=== PATIENT | female | born 1955 | race Caucasian/White ===

== ENCOUNTER → 2017-05-29 | Outpatient (CLI) | payer OTHER ==
[~2017-05-29] MED LIST: CELEXA40 MG; HYDROCHLOROTHIA25 MG PO; MACROBID 100 M100 MG PO; NEXIUM40 MG PO; OXYBUTYNIN CHLOR5 MG PO; RAMIPRIL5 MG PO
--- NOTE | 2017-05-29 14:13 | Diagnostic Imaging Report ---
PROCEDURE:X-RAY ABDOMEN - KUB COMPARISON:Abdomen x-ray 01/08/17. CT abdomen//16/16 INDICATIONS:CALCULUS OF THE KIDNEY FINDINGS: Medical devices: None. Bowel gas pattern: Normal. Organomegaly: None. Calcifications: No calcifications over the renal shadows or along expected course of the ureters. Bones: Levoscoliosis of the lumbar spine is stable with superimposed degenerative changes. No focal osseous lesions. A soft tissue calcification in the right lower quadrant is stable and measures 10 mm. CONCLUSION: No radiographic evidence of renal calculus. Dictated by: Elisha Desai M.D. on 05/29/2017 at 14:21 Electronically approved by: Elisha Desai M.D. on 05/29/2017 at 14:21
== END ==
LOC: RAD 13:36
PROVIDERS: ATTEND Urology
DX: N20.0 Calculus of kidney (principal)
CPT/HCPCS: 74000

== ENCOUNTER → 2017-11-28 | Outpatient (CLI) | payer OTHER ==
--- NOTE | 2017-11-28 17:15 | Diagnostic Imaging Report ---
PROCEDURE:X-RAY ABDOMEN - KUB COMPARISON:CT, CT ABDOMEN/PELVIS WO, 04/25/2016, 21:07. INDICATIONS:follow up calculus of kidney FINDINGS: There is a non-obstructed bowel-gas pattern. No calcifications projected over the renal shadows, expected course of the ureters or bladder. No acute osseous abnormalities. Stable 1.0 cm calcified injection granuloma in the right gluteal region. Stable S-shaped scoliosis of the thoracolumbar spine. Stable mild bilateral degenerative changes in the hips CONCLUSION: No calcifications project over the genitourinary tract. Ranjeet Ng M.D. Dictated by: Ranjeet Ng M.D. on 11/28/2017 at 17:19 Electronically approved by: Ranjeet Ng M.D. on 11/28/2017 at 17:19
== END ==
LOC: RAD 16:23
PROVIDERS: ATTEND Urology
DX: Z87.442 Personal history of urinary calculi (principal); M41.85 Other forms of scoliosis, thoracolumbar region
CPT/HCPCS: 74018

== ENCOUNTER → 2019-10-20 | Outpatient (CLI) | payer MEDICARE ==
--- NOTE | 2019-10-20 10:43 | Diagnostic Imaging Report ---
EXAM: ABDOMEN-1VIEW (KUB) DATE: 10/20/2019 9:55 AM INDICATION: Tachycardia was kidney COMPARISON: None FINDINGS: Bowel gas pattern is nonobstructive. Bowel gas partially secured is the renal shadows limiting evaluation for calculi. No radiographic evident renal calculi or urinary stone is appreciated. There is levoscoliosis of the thoracolumbar spine and multilevel degenerative changes. A partially visualized postsurgical changes from right hip arthroplasty noted. No acute osseous abnormality is identified. IMPRESSION: No radiographically evident renal calculi appreciated. Signed by: Dr. Reinaldo Ortiz MD on 10/20/2019 10:40 AM
== END ==
LOC: RAD 09:57
PROVIDERS: ATTEND Urology
DX: N20.0 Calculus of kidney (principal)
CPT/HCPCS: 74018

== ENCOUNTER → 2021-07-19 | Day surgery (SDC) | payer MEDICARE ==
[2021-07-14 14:21] LABS: BASOPHILS % 0.5 % (0.0-1.0); EOSINOPHILS # (AUTO) 0.3 (0.0-0.4); EOSINOPHILS % 3.4 % (0.0-6.0); HEMOGLOBIN 12.2 g/dL (12.0-16.0); LYMPHOCYTES # (AUTO) 2.3 (1.0-3.2); LYMPHOCYTES % 27.7 % (18.0-39.1); MEAN CORPUSCULAR HEMOGLOBIN 27.8 pg (28-32); MEAN CORPUSCULAR HGB CONC 31.3 g/dL (31-35); MEAN CORPUSCULAR VOLUME 88.8 fL (81-99); MONOCYTES # (AUTO) 0.9 (0.2-0.8); MONOCYTES % 11.2 % (4.4-11.3); NEUTROPHILS # (AUTO) 4.7 (2.1-6.9); NEUTROPHILS % 56.6 % (38.7-80.0); PLATELET COUNT 276 x10e3/uL (140-360); RED BLOOD COUNT 4.39 x10e6/uL (3.6-5.1); RED CELL DISTRIBUTION WIDTH 15.6 % (11.7-14.4)
[2021-07-14 14:31] LABS: INR 0.96; PROTHROMBIN TIME 13.5 seconds (11.9-14.5)
[2021-07-14 14:38] LABS: ALBUMIN 3.4 g/dL (3.5-5.0); ALBUMIN/GLOBULIN RATIO 0.8 (0.8-2.0); ANION GAP 12.5 mmol/L (8-16); CHOL/HDL RATIO 3.8 (3.0-3.6); CREATININE, SERUM 0.74 mg/dL (0.57-1.11); POTASSIUM 3.5 mmol/L (3.5-5.1)
[2021-07-14 15:00] LABS: THYROID STIMULATING HORMONE 2.614 uIU/mL (0.350-4.940)
[~2021-07-19] VITALS: Ht 157.5 cm; Wt 92.5 kg
[2021-07-19] VITALS (9 sets, daily range): BP systolic 90–147; BP diastolic 47–61
[~2021-07-19] MED LIST changes: +ASPIRIN 325 MG TAB ONE; +ASPIRIN81 MG PO; +ATORVASTATIN CA20 MG PO; +CELEBREX200 MG PO; +CLOPIDOGREL BISULFATE 75 MG TAB ONE; +COLESTIPOL HCL1 GM PO; +DICYCLOMINE HCL20 MG PO; +FENTANYL CITRATE/PF 100MCG/2 ML INJ ONE; +HEPARIN SOD (PORCINE) 1000 UNIT/ML 30ML ONE; +HEPARIN SOD/SOD CHLORIDE 2,000 ML ONE; +IOPAMIDOL 370 MG/ML 200 ML INFUS..BTL INJ ONE; +LIDOCAINE HCL 2% LOCAL 20 ML VIAL ONE; +METFORMIN HCL850 MG PO; +METOPROLOL TART25 MG PO; +MIDAZOLAM HCL 2 MG/2 ML VIAL ONE; +NEURONTIN300 MG PO; +NITROGLYCERIN/D5W 200 MCG/ML 250 ML ONE; +RISEDRONATE SO150 MG PO; +SODIUM CHLORIDE 0.9% 1000ML 1,000 ML ONE; +VERAPAMIL HCL 2.5 MG/ML 2 ML VIAL ONE; +VITAMIN D250 MC1 PO
== END | disposition home or self-care (01) ==
LOC: CATH LAB 06:52
PROVIDERS: ATTEND Internal Medicine Cardiovascular Disease
DX: I25.110 Atherosclerotic heart disease of native coronary artery with unstable angina pectoris (principal); R94.39 Abnormal result of other cardiovascular function study; I10 Essential (primary) hypertension; E78.5 Hyperlipidemia, unspecified; R01.1 Cardiac murmur, unspecified; E11.9 Type 2 diabetes mellitus without complications; K21.9 Gastro-esophageal reflux disease without esophagitis; M41.9 Scoliosis, unspecified; Z01.812 Encounter for preprocedural laboratory examination; Z20.822 Contact with and (suspected) exposure to COVID-19; Z79.82 Long term (current) use of aspirin; Z79.84 Long term (current) use of oral hypoglycemic drugs; Z79.899 Other long term (current) drug therapy; Z68.41 Body mass index [BMI] 40.0-44.9, adult
CPT/HCPCS: 93458; C9600; 36415; 80053; 80061; 84443; 85025; 85610; 92928; 99152; 99153; C1725; C1769; C1874; C1887; J1644; J2001; J2250; J3010; J7030; Q9967; U0002

== ENCOUNTER 2021-08-30 10:51 | Emergency (ER) | payer MEDICARE ==
[~2021-08-30] VITALS: Ht 157.5 cm; Wt 92.5 kg
[~2021-08-30 10:51] MED LIST changes: -ASPIRIN 325 MG TAB ONE; -CLOPIDOGREL BISULFATE 75 MG TAB ONE; -FENTANYL CITRATE/PF 100MCG/2 ML INJ ONE; -HEPARIN SOD (PORCINE) 1000 UNIT/ML 30ML ONE; -HEPARIN SOD/SOD CHLORIDE 2,000 ML ONE; -IOPAMIDOL 370 MG/ML 200 ML INFUS..BTL INJ ONE; -LIDOCAINE HCL 2% LOCAL 20 ML VIAL ONE; -MIDAZOLAM HCL 2 MG/2 ML VIAL ONE; -NITROGLYCERIN/D5W 200 MCG/ML 250 ML ONE; -SODIUM CHLORIDE 0.9% 1000ML 1,000 ML ONE; -VERAPAMIL HCL 2.5 MG/ML 2 ML VIAL ONE
[2021-08-30 11:26] LABS: CLARITY,URINE CLEAR (CLEAR); COLOR,URINE YELLOW (YELLOW); KETONES,URINE NEGATIVE (NEGATIVE); LEUKOCYTE ESTERASE ,URINE TRACE (NEGATIVE); NITRITE,URINE NEGATIVE (NEGATIVE); PROTEIN,URINE DIPSTICK NEGATIVE (NEGATIVE); URINE UROBILINOGEN 0.2 mg/dL (0.2 - 1)
[2021-08-30 12:17] LABS: BACTERIA,URINE FEW /HPF; EPITHELIAL CELLS,URINE FEW /LPF; RBC,URINE >50 /HPF (0-5); WBC,URINE (MAN) 0-5 /HPF (0-5)
[2021-08-30 12:30] VITALS: BP 145/62
== END 2021-08-30 12:25 | disposition home or self-care (01) ==
LOC: ER 11:13
DX: N93.9 Abnormal uterine and vaginal bleeding, unspecified (principal); I10 Essential (primary) hypertension; E11.9 Type 2 diabetes mellitus without complications; I50.9 Heart failure, unspecified; I25.10 Atherosclerotic heart disease of native coronary artery without angina pectoris; K21.9 Gastro-esophageal reflux disease without esophagitis; F41.9 Anxiety disorder, unspecified; Z95.810 Presence of automatic (implantable) cardiac defibrillator
CPT/HCPCS: 81001; 87086; 99282

== ENCOUNTER → 2024-07-21 | Day surgery (SDC) | payer MEDICARE ==
[2024-07-20 11:47] LABS: BASOPHILS % 0.3 % (0.0-1.0); EOSINOPHILS # (AUTO) 0.2 (0.0-0.4); EOSINOPHILS % 2.6 % (0.0-6.0); HEMATOCRIT 37.8 % (34.2-44.1); HEMOGLOBIN 12.1 g/dL (12.0-16.0); LYMPHOCYTES # (AUTO) 1.6 (1.0-3.2); LYMPHOCYTES % 18.3 % (18.0-39.1); MEAN CORPUSCULAR HEMOGLOBIN 29.2 pg (28-32); MEAN CORPUSCULAR VOLUME 91.3 fL (81-99); MONOCYTES # (AUTO) 1.1 (0.2-0.8); MONOCYTES % 11.8 % (4.4-11.3); NEUTROPHILS % 66.7 % (38.7-80.0); PLATELET COUNT 223 x10e3/uL (140-360); RED BLOOD COUNT 4.14 x10e6/uL (3.6-5.1); RED CELL DISTRIBUTION WIDTH 15.3 % (11.7-14.4); WHITE BLOOD COUNT 8.92 x10e3/uL (4.8-10.8)
[2024-07-20 13:01] LABS: ANION GAP 11.9 mmol/L (8-16); CALCIUM 8.5 mg/dL (8.4-10.2); CREATININE, SERUM 0.89 mg/dL (0.57-1.11); POTASSIUM 3.9 mmol/L (3.5-5.1)
[~2024-07-21] MED LIST changes: +ACETAMINOPHEN 1000 MG/100 ML IV PRN; +ASPIRIN 325 MG TAB PO SCH; +CYCLOBENZAPRINE10 MG PO; +DIPHENHYDRAMINE HCL INJ 50 MG/ML VIAL IV PRN; +DOCUSATE SODIUM 100 MG CAP PO PRN; +FUROSEMIDE40 MG PO; +HYDROCODONE/APAP 5MG-325MG TAB PO PRN; +HYDROCODONE/APAP 7.5MG-325MG 1 EA TAB PO PRN; +LATANOPROST2.5 ML OU; +LIDOCAINE HCL 2% LOCAL INJ 5 ML SDV VIAL INJ ONE; +MYRBETRIQ25 MG PO; +NEXIUM20 MG PO; +ONDANSETRON HCL INJ 2MG/ML 2ML 2 MG/ML VIAL IV PRN; +ONDANSETRON HCL INJ 2MG/ML 2ML 2 MG/ML VIAL ONE; +OZEMPIC0.25 MG/02; +OZEMPIC0.25 MG/02 INJ; +PROPOFOL IV EMULSION 10 MG/ML 20 ML VIAL ONE; +RESTASIS1 EACH OU; +RESVERATROL50 MG PO; +ROPIVACAINE/EPI/CLONIDINE/KET 50 ML SYRINGE INJ ONE; +SODIUM CHLORIDE 0.9% 100 ML ONE; +SODIUM CHLORIDE 0.9% 1000ML 1,000 ML IV SCH; +SPIRONOLACTONE25 MG PO; +TAMOXIFEN CITRA10 MG PO; +TRAZODONE HCL100 MG PO; +TUMERSAID TABL1 EACH PO; +VITAMIN E400 UNI1 PO
[2024-07-21] MEDS: CEFAZOLIN SODIUM 2 GM ONE (05:58)
[2024-07-21] MEDS: LACTATED RINGER'S 1,000 ML ONE (05:58)
[2024-07-21] MEDS: CELECOXIB 200 MG CAP ONE (05:59)
[2024-07-21] MEDS: GABAPENTIN 300 MG CAP ONE (05:59)
[2024-07-21] MEDS: DEXAMETHASONE SOD PHOS 10 MG/1 ML VIAL ONE (05:59)
[2024-07-21 10:50] VITALS: BP 134/55; PULSE 66; RESP 16; O2SAT 96
== END | disposition home health service (06) ==
LOC: OR 05:19
PROVIDERS: ATTEND Specialist
DX: M17.12 Unilateral primary osteoarthritis, left knee (principal); M25.762 Osteophyte, left knee; G47.33 Obstructive sleep apnea (adult) (pediatric); E11.9 Type 2 diabetes mellitus without complications; I25.10 Atherosclerotic heart disease of native coronary artery without angina pectoris; I10 Essential (primary) hypertension; E78.5 Hyperlipidemia, unspecified; I48.91 Unspecified atrial fibrillation; R01.1 Cardiac murmur, unspecified; K21.9 Gastro-esophageal reflux disease without esophagitis; M06.9 Rheumatoid arthritis, unspecified; M81.0 Age-related osteoporosis without current pathological fracture; F41.9 Anxiety disorder, unspecified; F32.A Depression, unspecified; Z01.810 Encounter for preprocedural cardiovascular examination; Z01.812 Encounter for preprocedural laboratory examination; Z01.818 Encounter for other preprocedural examination; Z79.82 Long term (current) use of aspirin; Z79.84 Long term (current) use of oral hypoglycemic drugs; Z79.85 Long-term (current) use of injectable non-insulin antidiabetic drugs; Z68.33 Body mass index [BMI] 33.0-33.9, adult; Z96.641 Presence of right artificial hip joint; Z85.3 Personal history of malignant neoplasm of breast; Z85.42 Personal history of malignant neoplasm of other parts of uterus; Z95.5 Presence of coronary angioplasty implant and graft
CPT/HCPCS: 27447; 36415; 71046; 73560; 80048; 85025; 86850; 86900; 93005; 97116; 97161; 97530; C1713 ×2; C1776 ×3; J1100; J2003; J2405; J2704; J7050; J7121